=== PATIENT | female | born 1950 | race African-American/Black ===

== ENCOUNTER 2019-04-01 13:09 | Inpatient (IN) | payer OTHER ==
[~2019-04-01] VITALS: Ht 154.9 cm; Wt 43.5 kg
[2019-04-01] MEDS ORDERED: CLON1PAT11 TD (13:18)
[2019-04-01] MEDS ORDERED: LOPE2CAP PO (13:18)
[2019-04-01] MEDS ORDERED: DEXTROSE 50% WATER 50ML SYRINGE IV ONE (13:21)
[2019-04-01 16:15] LABS: CHLORIDE 94 mEq/L (98-107); INR 1.2; PROTHROMBIN TIME 12.2 sec (9.6-11.0)
[2019-04-01 16:18] LABS: ETHANOL BLOOD < 10 mg/dL
[2019-04-01 16:21] LABS: LDL CHOLESTEROL 107 mg/dL (5-100)
[2019-04-01 16:31] LABS: HEMATOCRIT. 49.8 % (36.0-48.0); HEMOGLOBIN. 16.7 g/dL (12.0-16.0); MEAN CORPUSCULAR HEMOGLOBIN 34.8 pg (28.0-32.0); MEAN CORPUSCULAR VOLUME 103.5 fL (81.0-99.0); MEAN PLATELET VOLUME 7.6 fl (7.4-10.4); PLATELET 123 x1000/uL (130-400); RED BLOOD CELL COUNT 4.81 mill/uL (4.2-5.4); RED CELL DISTRIBUTION WIDTH 16.6 % (11.6-14.6)
[2019-04-01 17:10] VITALS: BP 138/85
[2019-04-01 17:20] VITALS: BP 138/85
[2019-04-01] MEDS ORDERED: CLONIDINE 0.1MG TABLET PO PRN (17:45)
[2019-04-01] MEDS ORDERED: ACETAMINOPHEN 650MG SUPP PR PRN (17:45)
[2019-04-01] MEDS ORDERED: IPRATROPIUM/ALBUTEROL 0.5-3(2.5)MG/3ML NEB INH PRN (17:45)
[2019-04-01] MEDS ORDERED: ACETAMINOPHEN 325MG TABLET PO PRN (17:45)
[2019-04-01] MEDS: DEXT 5%/0.9% NACL 1,000 ML IV SCH (17:45)
[2019-04-01] MEDS ORDERED: LORAZEPAM 0.5MG TABLET PO PRN (17:45)
[2019-04-01] MEDS ORDERED: DIPHENHYDRAMINE 50MG/ML VIAL IV PRN (17:45)
[2019-04-01] MEDS ORDERED: GUAIFENESIN 200MG/10ML SUGAR FREE UDC PO PRN (17:45)
[2019-04-01] MEDS ORDERED: DOCUSATE SODIUM 100MG CAPSULE PO PRN (17:45)
[2019-04-01] MEDS ORDERED: ONDANSETRON HCL 4MG/2ML INJ IV PRN (17:45)
[2019-04-01] MEDS ORDERED: HYDROCODONE/ACETAMINOPHEN 5/325MG TABLET PO PRN (17:45)
[2019-04-01] MEDS ORDERED: MAGNESIUM/ALUMINUM HYDROXIDE/SIMETHICONE 30ML UDC PO PRN (17:45)
[2019-04-01 17:57] LABS: PLATELET ESTIMATE DECREASED
[2019-04-01 20:00] VITALS: BP 131/71
[2019-04-01] MEDS: HEPARIN 5000 UNITS/ML VIAL SUBCUT SCH (21:04)
[2019-04-02] VITALS (8 sets, daily range): BP systolic 124–148; BP diastolic 73–84
[2019-04-02 01:16] LABS: CREATINE KINASE MB FRACTION 1.1 ng/mL (0.5-3.6)
[2019-04-02 08:25] LABS: HEMATOCRIT. 41.6 % (36.0-48.0); HEMOGLOBIN. 14.2 g/dL (12.0-16.0); MEAN CORPUSCULAR HEMOGLOBIN 34.5 pg (28.0-32.0); MEAN CORPUSCULAR VOLUME 101.3 fL (81.0-99.0); PLATELET 120 x1000/uL (130-400); RED BLOOD CELL COUNT 4.11 mill/uL (4.2-5.4); RED CELL DISTRIBUTION WIDTH 16.6 % (11.6-14.6)
[2019-04-02 08:27] LABS: CHLORIDE 95 mEq/L (98-107)
[2019-04-02 08:38] LABS: CREATINE KINASE MB FRACTION < 1.0 ng/mL (0.5-3.6); LDL CHOLESTEROL 96 mg/dL (5-100)
[2019-04-02 08:39] LABS: CREATINE KINASE 44 IU/L (26-192); HDL CHOLESTEROL 54 mg/dL (40-59); T4 FREE 0.94 ng/dL (0.76-1.46)
[2019-04-02] MEDS: HEPARIN 5000 UNITS/ML VIAL SUBCUT SCH (09:49)
[2019-04-02] MEDS ORDERED: DIPHENHYDRAMINE 50MG/ML VIAL IV PRN (13:30)
[2019-04-02 14:21] LABS: PLATELET ESTIMATE SLIGHTLY DECREASED
[2019-04-02] MEDS ORDERED: CLON1PAT11 TP (17:07)
[2019-04-02] MEDS ORDERED: LOPE2CAP MT (17:07)
[2019-04-02] MEDS: DEXT 5%/0.9% NACL 1,000 ML IV SCH (17:45)
== END 2019-04-02 18:05 | disposition home or self-care (01) | DRG 73 ==
LOC: ER 13:09 → EDBD 13:09 → 6WST 16:00 → SUPCPDRO 16:11 → ENRESERV 16:14
PROVIDERS: ADMIT Internal Medicine; ATTEND Internal Medicine
DX: G90.8 Other disorders of autonomic nervous system (principal); N18.6 End stage renal disease; I50.43 Acute on chronic combined systolic (congestive) and diastolic (congestive) heart failure; I13.2 Hypertensive heart and chronic kidney disease with heart failure and with stage 5 chronic kidney disease, or end stage renal disease; E87.1 Hypo-osmolality and hyponatremia; Q61.2 Polycystic kidney, adult type; D61.818 Other pancytopenia; E46 Unspecified protein-calorie malnutrition; Z68.1 Body mass index [BMI] 19.9 or less, adult; I48.91 Unspecified atrial fibrillation; I45.81 Long QT syndrome; E86.0 Dehydration; D69.6 Thrombocytopenia, unspecified; E16.2 Hypoglycemia, unspecified; I27.20 Pulmonary hypertension, unspecified; I95.3 Hypotension of hemodialysis; J44.9 Chronic obstructive pulmonary disease, unspecified; I25.10 Atherosclerotic heart disease of native coronary artery without angina pectoris; D63.8 Anemia in other chronic diseases classified elsewhere; F41.9 Anxiety disorder, unspecified; Z95.5 Presence of coronary angioplasty implant and graft; Z99.2 Dependence on renal dialysis; Z86.73 Personal history of transient ischemic attack (TIA), and cerebral infarction without residual deficits; Z88.5 Allergy status to narcotic agent; Z88.9 Allergy status to unspecified drugs, medicaments and biological substances
CPT/HCPCS: 36415; 71045; 80061; 80320; 82550; 82553; 82962; 83721; 84439; 84443; 84484; 93005; 93306; 99291; J1644; G0480

== ENCOUNTER 2019-06-10 14:36 | Emergency (ER) | payer OTHER ==
[~2019-06-10] VITALS: Ht 154.9 cm; Wt 46.9 kg
[~2019-06-10 14:36] MED LIST: CLON1PAT11 TP; LOPE2CAP MT
[2019-06-10 16:15] LABS: CHLORIDE 101 mEq/L (98-107); HEMATOCRIT. 38.1 % (36.0-48.0); HEMOGLOBIN. 12.9 g/dL (12.0-16.0); MEAN CORPUSCULAR HEMOGLOBIN 33.6 pg (28.0-32.0); MEAN CORPUSCULAR VOLUME 99.1 fL (81.0-99.0); MEAN PLATELET VOLUME 7.9 fl (7.4-10.4); PLATELET 150 x1000/uL (130-400); RED BLOOD CELL COUNT 3.85 mill/uL (4.2-5.4); RED CELL DISTRIBUTION WIDTH 21.1 % (11.6-14.6)
[2019-06-10 17:48] LABS: PLATELET ESTIMATE NORMAL
[2019-06-10 19:06] VITALS: BP 116/61
== END 2019-06-10 19:06 | disposition home or self-care (01) ==
LOC: ER 14:36
DX: R42 Dizziness and giddiness (principal); D72.819 Decreased white blood cell count, unspecified; I12.0 Hypertensive chronic kidney disease with stage 5 chronic kidney disease or end stage renal disease; N18.6 End stage renal disease; Z99.2 Dependence on renal dialysis; Z98.890 Other specified postprocedural states; Z88.1 Allergy status to other antibiotic agents; Z91.041 Radiographic dye allergy status; Z88.8 Allergy status to other drugs, medicaments and biological substances
CPT/HCPCS: 36415; 71045; 82962; 84484; 93005; 99284

== ENCOUNTER 2019-12-23 13:16 | Inpatient (IN) | payer OTHER ==
[~2019-12-23] VITALS: Ht 154.9 cm; Wt 57.2 kg
[~2019-12-23 13:16] MED LIST changes: +APIX2.5T PO; -CLON1PAT11 TP; +DOCU-138 PO; +FURO80TA3 PO; -LOPE2CAP MT; +MECL-159 PO; +METO25TA6 PO; +MIDO10TA PO; +PANT20TA3 PO; +SEVE800T8 PO; +TRAZ150T78 PO
[2019-12-23] MEDS ORDERED: SODIUM CHLORIDE 0.9% 1,000 ML IV ONE (14:00)
[2019-12-23 14:13] LABS: HEMATOCRIT. 38.9 % (36.0-48.0); HEMOGLOBIN. 13.3 g/dL (12.0-16.0); MEAN CORPUSCULAR VOLUME 102.3 fL (81.0-99.0); MEAN PLATELET VOLUME 8.1 fl (7.4-10.4); PLATELET 199 x1000/uL (130-400); RED BLOOD CELL COUNT 3.81 mill/uL (4.2-5.4); RED CELL DISTRIBUTION WIDTH 17.6 % (11.6-14.6)
[2019-12-23 14:20] LABS: CHLORIDE 92 mEq/L (98-107)
[2019-12-23 14:30] LABS: INR 1.1; PROTHROMBIN TIME 12.2 sec (9.6-11.0)
[2019-12-23] MEDS ORDERED: CEFTRIAXONE 1 G PREMIX 50 ML IV ONE (16:30)
[2019-12-23] MEDS ORDERED: AZITHROMYCIN 500 MG in DEXT 5% WATER 250 ML IV STA (17:00)
[2019-12-23 17:03] LABS: PLATELET ESTIMATE NORMAL
[2019-12-23 22:00] VITALS: BP 95/65
[2019-12-23] MEDS: TRAZODONE HCL 50MG TABLET PO SCH (23:00)
[2019-12-23] MEDS ORDERED: MECLIZINE 25MG TABLET PO PRN (23:00)
[2019-12-23] MEDS ORDERED: MEDICATION NOT ON FORMULARY EA (Midodrine Hcl 10 MG) PO SCH (23:00)
[2019-12-23] MEDS ORDERED: ACETAMINOPHEN 325MG TABLET PO PRN (23:15)
[2019-12-24] VITALS: BP 96/60
[2019-12-24 03:49] VITALS: BP 103/60
[2019-12-24] MEDS: PANTOPRAZOLE 40MG DR TABLET PO SCH ×4 (06:30→20:57)
[2019-12-24 08:00] VITALS: BP 108/78
[2019-12-24] MEDS: SEVELAMER CARBONATE 800 MG TABLET PO SCH ×3 (08:48→17:10)
[2019-12-24] MEDS: MIDODRINE HCL 5MG TABLET PO SCH ×3 (08:50→16:15)
[2019-12-24] MEDS: DOCUSATE SODIUM 100MG CAPSULE PO SCH (08:51)
[2019-12-24] MEDS: APIXABAN 2.5 MG TABLET PO SCH ×2 (08:51→16:14)
[2019-12-24] MEDS ORDERED: MEDICATION NOT ON FORMULARY EA (Pantoprazole Sodium 20 MG) PO SCH (09:00)
[2019-12-24 12:00] VITALS: BP 96/61
[2019-12-24 12:11] LABS: HEMATOCRIT. 38.7 % (36.0-48.0); HEMOGLOBIN. 13.1 g/dL (12.0-16.0); MEAN CORPUSCULAR VOLUME 103.1 fL (81.0-99.0); MEAN PLATELET VOLUME 7.7 fl (7.4-10.4); PLATELET 211 x1000/uL (130-400); RED BLOOD CELL COUNT 3.75 mill/uL (4.2-5.4); RED CELL DISTRIBUTION WIDTH 17.3 % (11.6-14.6)
[2019-12-24 14:03] LABS: PLATELET ESTIMATE NORMAL
[2019-12-24 16:00] VITALS: BP 90/43
[2019-12-24 16:22] VITALS: BP_SYST 105; BP_SYST 106; BP_SYST 109; BP_DIAS 62; BP_DIAS 63; BP_DIAS 70
[2019-12-24] MEDS: TRAZODONE HCL 50MG TABLET PO SCH (20:56)
[2019-12-24] MEDS ORDERED: MEDICATION NOT ON FORMULARY EA (Trazodone Hcl 150 MG) PO SCH (21:00)
[2019-12-25] VITALS: BP 128/60
[2019-12-25 04:00] VITALS: BP 128/72
[2019-12-25] MEDS: PANTOPRAZOLE 40MG DR TABLET PO SCH ×2 (06:53→12:42)
[2019-12-25 08:00] VITALS: BP 126/73
[2019-12-25] MEDS: DOCUSATE SODIUM 100MG CAPSULE PO SCH (09:29)
[2019-12-25] MEDS: APIXABAN 2.5 MG TABLET PO SCH (09:29)
[2019-12-25] MEDS: MIDODRINE HCL 5MG TABLET PO SCH ×2 (09:29→15:32)
[2019-12-25] MEDS: SEVELAMER CARBONATE 800 MG TABLET PO SCH ×2 (09:30→12:42)
[2019-12-25 09:56] VITALS: BP 126/73
[2019-12-25 15:03] VITALS: BP 114/75
[2019-12-25 15:30] VITALS: BP 114/75
== END 2019-12-25 15:52 | disposition home or self-care (01) | DRG 73 ==
LOC: ER 13:32 → EDBEDREQ 16:41 → EDBEDREQTM 16:41 → EDBEDREQSVC 16:41 → 6WST 17:43 → EDBEDREQ 17:54 → EDBEDREQTM 17:54 → ENRESERV 21:08
PROVIDERS: ADMIT Internal Medicine; ATTEND Internal Medicine
DX: G90.8 Other disorders of autonomic nervous system (principal); N18.6 End stage renal disease; I13.2 Hypertensive heart and chronic kidney disease with heart failure and with stage 5 chronic kidney disease, or end stage renal disease; I48.92 Unspecified atrial flutter; R09.02 Hypoxemia; I50.9 Heart failure, unspecified; I48.91 Unspecified atrial fibrillation; Z99.2 Dependence on renal dialysis; Z87.891 Personal history of nicotine dependence; Z79.01 Long term (current) use of anticoagulants; Z79.899 Other long term (current) drug therapy
CPT/HCPCS: 36415; 71045; 80048; 80053; 80061; 83880; 84484; 85025; 93005; 96365; 99285; J0456; J0696; J7030; J7060